=== PATIENT | female | born 1990 ===

== ENCOUNTER 2017-05-09 17:41 | Emergency (ER) | payer MEDICAID, OTHER ==
[~2017-05-09] VITALS: Ht 167.6 cm; Wt 111.1 kg
[2017-05-09] MEDS ORDERED: ASPI81TA31 PO (18:11)
[2017-05-09] MEDS ORDERED: ENOX40DI SQ (18:11)
--- NOTE | 2017-05-09 18:43 | NUR ---
PT IN ROOM AWAITING MED EVAL.
--- NOTE | 2017-05-09 18:59 | NUR ---
[facility] REPORT TO [facility].
--- NOTE | 2017-05-09 19:26 | NUR ---
Patient walked in to ER c/o vaginal bleeding. Patient states that she has triplets at approximately 12 weeks, 2 of which were implanted one natural. Patient states that she is being followed closely by [facility] but that she has a history of complicated and miscarriages. She states she is here to have an ultrasound to check the status of the (fetuses). To room [id number] at bedside for MSE.
--- NOTE | 2017-05-09 20:53 | NUR ---
Radiology at bedside for US.
--- NOTE | 2017-05-09 21:46 | NUR ---
Patient discharged to home in stable conditon. Written and verbal after care instructions given. Patient verbalizes understanding of instructions.
== END 2017-05-09 21:48 | disposition home or self-care (01) ==
LOC: ER 17:48
DX: O20.0 Threatened abortion (principal); Z79.82 Long term (current) use of aspirin; Z3A.12 12 weeks gestation of pregnancy
CPT/HCPCS: 36415; 76856; 84702; 99285; A4663